=== PATIENT | female | born 1990 | race Asian ===

== ENCOUNTER 2021-04-02 04:08 | Inpatient (IN) | payer SELFPAY ==
[~2021-04-02] VITALS: Ht 165.1 cm; Wt 66.8 kg
--- NOTE | 2021-04-02 04:20 | NUR ---
PT BROUGHT TO LABOR UNIT IN WHEELCHAIR AND SHOWN TO LDR 3 BY THIS RN. PT REPORTS CONTRACTIONS Q2MIN AND POSSIBLE SROM IN ADMISSIONS APPROX. 0415. RN DISCUSSES PLAN OF CARE AND PT VERBALIZES AN UNDERSTANDING. PT [age] , 38.4WEEKS, GBS-, RUBELLA IMMUNE.
--- NOTE | 2021-04-02 04:25 | NUR ---
RN INFORMS CHARGE NURSE THAT PT IS SROM AND COMPLETE, +2 AND FEELING PRESSURE AND REQUESTS THAT CHARGE NURSE CALL PROVIDER PAPER NOVELTY MAKER FOR IMMINENT DELIVERY.
--- NOTE | 2021-04-02 04:37 | NUR ---
DR. ROSALES PRESENT AT BEDSIDE AND PT IS PREPPED FOR DELIVERY
[2021-04-02 04:40] VITALS: BP 138/63; PULSE 102; TEMP 98.7
--- NOTE | 2021-04-02 04:40 | NUR ---
0435- 18G IV PLACED IN PT'S RIGHT FOREARM BY Jacklyn JANG RN 0440- ONE VIABLE MALE BORN AT THIS TIME AND PLACED SKIN TO SKIN ON MOTHER'S ABDOMEN.
[2021-04-02 05:27] LABS: BASO # 0.1 K/mm3 (0.0-0.2); BASO % 0.4 % (0.0-2.0); EOS # 0.1 K/mm3 (0.0-0.7); EOS % 0.5 % (0-4.0); GRAN # 10.5 K/mm3 (1.4-6.5); GRAN % 69.5 % (42.2-75.2); HEMATOCRIT 38.6 % (37.0-47.0); HEMOGLOBIN 13.3 g/dl (12.5-16.0); LYMPH # 3.6 K/mm3 (1.2-3.4); LYMPH % 23.7 % (20.0-51.0); MEAN CELL VOLUME 94 fl (80.0-100.0); MEAN CORPUSCULAR HEMOGLOBIN 32 pg (27.0-31.0); MEAN CORPUSCULAR HGB CONC 35 g/dl (33.0-37.0); MEAN PLATELET VOLUME 10.6 fl (7.4-10.4); MONO # 0.8 K/mm3 (0.1-0.6); MONO % 5.4 % (1.7-9.3); PLATELET COUNT 257 K/mm3 (130-400); RED BLOOD COUNT 4.13 M/mm3 (4.10-5.30); REDCELL DISTRIBUTION WIDTH-CV 12.7 % (11.5-14.5)
--- NOTE | 2021-04-02 06:34 | NUR ---
PT IS BROUGHT TO LABOR AND DELIVERY IN WHEELCHAIR AND APPEARS TO BE UNCOMFORTABLE. PT REPORTS POSSIBLE SROM WHILE DOWN IN ADMISSIONS AT APPROX 0415. PT STATES SHE HAS HAD SOME BLOODY SHOW FOLLOWING MEMBRANE SWEEP IN OFFICE 04/01. PT IS , 38.4WEEKS GBS-, RUBELLA IMMUNE. RN BRINGS JUDSON TO ROOM LDR3 AND INSTRUCTS PT TO PUT ON GOWN AND DISCUSSES PLAN OF CARE. PT VERBALIZED AN UNDERSTANDING.
[2021-04-02 06:40] VITALS: BP 116/34; PULSE 66; TEMP 98.2
--- NOTE | 2021-04-02 06:45 | NUR ---
PT'S VITAL SIGNS STABLE. LOCHIA REMAINS SCANT. FUNDUS FIRM AND 1FB BELOW UMBILICUS. PT DID NOT HAVE EPIDURAL, AND DENIES FEELING DIZZINESS OR FAINT. ABLE TO INDEPENDENTLY AMBULATE TO THE RESTROOM, VOIDS 400CC OF BLOOD TINGED URINE. NO CLOTS PRESENT. IV BEGINS LEAKING AND FALLING OUT, DC'D BY THIS NURSE. PT HAS FULL SENSATION AND STEADY GAIT. BECCA CARE PROVIDED, NEW PAD AND ICE PACK PLACED IN CLEAN UNDERWEAR. PT PLACED IN GOWN. REPORTS PAIN IS MANAGEABLE, REQUESTS TO AMBULATE TO ROOM. ORIENTED TO PP ROOM AND POLICIES, DENIES FURTHER QUESTIONS OR CONCERNS AT THIS TIME.
[2021-04-02] MEDS ORDERED: MOTRIN 800800 MG/TAB PO (08:33)
[2021-04-02 13:00] VITALS: BP 97/51; PULSE 77; TEMP 98
[2021-04-02 17:04] VITALS: BP 109/67; PULSE 70; TEMP 98.1
[2021-04-02 19:30] VITALS: BP 103/65; PULSE 65; TEMP 97.9
[2021-04-03 01:00] VITALS: BP 104/71; PULSE 62; TEMP 98
[2021-04-03 08:12] VITALS: BP 111/65; PULSE 68; TEMP 98
== END 2021-04-03 11:50 | disposition home or self-care (01) | DRG 807 ==
LOC: LDRO 04:08 → LDR 04:30 → OB 07:00
PROVIDERS: Obstetrics & Gynecology; ADMIT Obstetrics & Gynecology
PROC: 10E0XZZ Delivery of Products of Conception, External Approach (ICD-10-PCS; principal; 2021-04-02)
PROC: 0UQMXZZ Repair Vulva, External Approach (ICD-10-PCS; 2021-04-02)
DX: O70.0 First degree perineal laceration during delivery (principal); Z37.0 Single live birth; Z3A.38 38 weeks gestation of pregnancy
CPT/HCPCS: J2590; J7120

== ENCOUNTER → 2021-10-09 | Outpatient (CLI) | payer OTHER ==
[~2021-10-09] MED LIST: MOTRIN 800800 MG/TAB PO
== END ==
LOC: MC.RAD 07:43
DX: N63.20 Unspecified lump in the left breast, unspecified quadrant (principal)

== ENCOUNTER 2022-01-16 02:16 | Emergency (ER) | payer OTHER ==
[~2022-01-16] VITALS: Ht 165.1 cm; Wt 50.5 kg
[2022-01-16 02:45] VITALS: TEMP 98
[2022-01-16 04:33] VITALS: BP 110/64; PULSE 76
== END 2022-01-16 04:48 | disposition home or self-care (01) ==
LOC: COL.ER 02:16
DX: B34.9 Viral infection, unspecified (principal); Z20.822 Contact with and (suspected) exposure to COVID-19